=== PATIENT | female | born 1960 | race Caucasian/White ===

== ENCOUNTER 2017-11-06 00:37 | Observation (INO) | payer MEDICARE ==
[2017-11-06] VITALS (7 sets, daily range): BP systolic 91–111; BP diastolic 56–62; PULSE 60–88; RESP 16; TEMP 97.7–98.9; O2SAT 93–99
[~2017-11-06] VITALS: Ht 157.5 cm; Wt 70.0 kg
[2017-11-06] MEDS ORDERED: CHOL1CAP24 PO (01:33)
[2017-11-06] MEDS ORDERED: HYDR-3516 PO (01:33)
[2017-11-06] MEDS ORDERED: CREO3000 PO (01:33)
[2017-11-06] MEDS ORDERED: SYNT25TA PO (01:33)
[2017-11-06] MEDS ORDERED: SODIUM CHLORID 0.9% 500 ML INJ 500 ML IV ONE (02:00)
--- NOTE | 2017-11-06 02:08 | PD ---
HPI Chief Complaint: Fever Time Seen by Provider: 01:59 Travel History International Travel<30 days: No Contact w/Intl Traveler<30days: No Traveled to known affect area: No History of Present Illness HPI 57-year-old female presents to the emergency department for evaluation of fever. 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 Patient states he infusion or performed an [facility]. 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 Patient states last infusion was on Tuesday. Patient states that prior to her IVIG she had been having headaches and did not tell her managing provider about this. Patient has not had fever chills until today. Patient states today her temperature elevation increase to 103F. Patient following took Lortab and acetaminophen as well as ibuprofen for fever management. Patient states for transport to the hospital she called EMS to transport her. Patient also has history of pancreatitis and hypothyroidism. Patient also reports that earlier today she had severe chest pain which is atypical for her she's never had severe chest pain before without associated referred neck jaw back shoulder arm pain associated nausea vomiting shortness of breath or sweats. Patient denies any chest pain at this time. PFSH Past Medical History Narrative Medical Immune deficiency CHF hypothyroidism pancreatitis thyroidectomy tonsillectomy; no tobacco use; nursing notes reviewed Congestive Heart Failure: Yes Diminished Hearing: No Gastrointestinal Disorders: Yes (TORTUOUS ESOPHAGUS) Immune Disorder: Yes (IV/IG TRANSFUSIONS) Pancreatitis: Yes Tetanus Vaccination: Unknown Influenza Vaccination: No Past Surgical History Surgical History: No Previous Surgery Endocrine Surgery: Yes (THYROID/PARATHYORID REMOVED) Tonsillectomy: Yes Other Surgery: Yes (ESOPHAGUS/STOMACH STRETCHING) Social History Alcohol Use: No Tobacco Use: No Substance Use: No Allergies-Medications (Allergen,Severity, Reaction): Coded Allergies: No Known Allergies (Unverified , 11/06/17) Reported Meds & Prescriptions Reported Meds & Active Scripts Active Reported Hydrocodone-Acetaminophen 5-325 mg Tab 1 Tab PO Q6H PRN Vitamin D3 (Cholecalciferol) 10,000 Unit Cap 6,000 Units PO Q7D Synthroid (Levothyroxine Sodium) 25 Mcg Tab 25 Mcg PO DAILY Creon (Pancrelipase) 3,000-9,500-15,000 Units Cap 1 Cap PO TIDPC Review of Systems Except as stated in HPI: all other systems reviewed are Neg Physical Exam Narrative GENERAL: Well-developed well-nourished female in no acute distress no respiratory distress SKIN: Warm and dry. HEAD: Normocephalic. EYES: No scleral icterus. No injection or drainage. NECK: Supple, trachea midline. No JVD or lymphadenopathy. CARDIOVASCULAR: Regular rate and rhythm without murmurs, gallops, or rubs. RESPIRATORY: Breath sounds equal bilaterally. No accessory muscle use. GASTROINTESTINAL: Abdomen soft, non-tender, nondistended. MUSCULOSKELETAL: No cyanosis, or edema. BACK: Nontender without obvious deformity. No CVA tenderness. Data Data Last Documented VS Vital Signs Date Time Temp Pulse Resp B/P (MAP) Pulse Ox O2 Delivery O2 Flow Rate FiO2 11/06/17 02:23 96 Nasal Cannula 2.00 11/06/17 00:40 98.9 88 16 111/62 (78) Orders Orders Sepsis Workup Initiated (11/06/17 ) Electrocardiogram (11/06/17 01:59) Complete Blood Count With Diff (11/06/17 01:59) Comprehensive Metabolic Panel (11/06/17 01:59) Prothrombin Time / Inr (Pt) (11/06/17 01:59) Act Partial Throm Time (Ptt) (11/06/17 01:59) Lactic Acid Sepsis Protocol (11/06/17 01:59) Magnesium (Mg) (11/06/17 01:59) Lipase (11/06/17 01:59) Ckmb (Isoenzyme) Profile (11/06/17 01:59) Troponin I (11/06/17 01:59) Urinalysis - C+S If Indicated (11/06/17 01:59) Influenzae A/B Antigen (11/06/17 01:59) Blood Culture (11/06/17 01:59) Chest, Single Ap (11/06/17 01:59) Blood Glucose (11/06/17 01:59) Ecg Monitoring (11/06/17 01:59) Iv Access Insert/Monitor (11/06/17 01:59) Oximetry (11/06/17 01:59) Oxygen Administration (11/06/17 01:59) Ct Brain W/O Iv Contrast(Rout) (11/06/17 01:59) Sodium Chlorid 0.9% 500 Ml Inj (Ns 500 M (11/06/17 02:00) Drug Screen, Random Urine (11/06/17 01:59) CKMB (11/06/17 02:10) CKMB% (11/06/17 02:10) Aspirin Chew (Aspirin Chew) (11/06/17 04:00) Admit Order (Ed Use Only) (11/06/17 ) Construction Analyst / Telemetry [id number] (11/06/17 04:13) Diet Heart Healthy (11/06/17 Breakfast) Activity Oob With Assistance (11/06/17 04:13) Notify Dr: Other (11/06/17 04:13) Labs Laboratory Tests Test 11/06/17 02:10 White Blood Count 6.8 TH/MM3 Red Blood Count 4.63 MIL/MM3 Hemoglobin 13.2 GM/DL Hematocrit 39.2 % Mean Corpuscular Volume 84.8 FL Mean Corpuscular Hemoglobin 28.5 PG Mean Corpuscular Hemoglobin Concent 33.6 % Red Cell Distribution Width 14.4 % Platelet Count 194 TH/MM3 Mean Platelet Volume 7.9 FL Neutrophils (%) (Auto) 84.6 % Lymphocytes (%) (Auto) 8.3 % Monocytes (%) (Auto) 6.1 % Eosinophils (%) (Auto) 0.1 % Basophils (%) (Auto) 0.9 % Neutrophils # (Auto) 5.8 TH/MM3 Lymphocytes # (Auto) 0.6 TH/MM3 Monocytes # (Auto) 0.4 TH/MM3 Eosinophils # (Auto) 0.0 TH/MM3 Basophils # (Auto) 0.1 TH/MM3 CBC Comment DIFF FINAL Differential Comment Prothrombin Time 10.1 SEC Prothromb Time International Ratio 1.0 RATIO Activated Partial Thromboplast Time 27.7 SEC Urine Color YELLOW Urine Turbidity CLEAR Urine pH 6.5 Urine Specific [place] 1.013 Urine Protein TRACE mg/dL Urine Glucose (UA) NEG mg/dL Urine Ketones NEG mg/dL Urine Occult Blood MOD Urine Nitrite NEG Urine Bilirubin NEG Urine Urobilinogen 2.0 MG/DL Urine Leukocyte Esterase NEG Urine RBC 9 /hpf Urine WBC 2 /hpf Urine Squamous Epithelial Cells 1 /hpf Urine Mucus FEW /lpf Microscopic Urinalysis Comment CATH-CULT NOT IND Blood Urea Nitrogen 11 MG/DL Creatinine 0.82 MG/DL Random Glucose 89 MG/DL Total Protein 8.1 GM/DL Albumin 3.4 GM/DL Calcium Level 8.2 MG/DL Magnesium Level 2.3 MG/DL Alkaline Phosphatase 92 U/L Aspartate Amino Transf (AST/SGOT) 46 U/L Alanine Aminotransferase (ALT/SGPT) 29 U/L Total Bilirubin 0.6 MG/DL Sodium Level 136 MEQ/L Potassium Level 4.5 MEQ/L Chloride Level 100 MEQ/L Carbon Dioxide Level 30.1 MEQ/L Anion Gap 6 MEQ/L Estimat Glomerular Filtration Rate 72 ML/MIN Lactic Acid Level 1.3 mmol/L Total Creatine Kinase 152 U/L Creatine Kinase MB LESS THAN 0.5 NG/ML Troponin I 0.15 NG/ML Lipase 168 U/L Urine Opiates Screen POS Urine Barbiturates Screen NEG Urine Amphetamines Screen POS Urine Benzodiazepines Screen NEG Urine Cocaine Screen NEG Urine Cannabinoids Screen POS MDM Medical Decision Making Medical Screen Exam Complete: Yes Emergency Medical Condition: Yes Medical Record Reviewed: Yes Interpretation(s) EKG sinus rhythm rate 93 left atrial enlargement and incomplete right bundle branch block and left anterior fascicular block no ST elevation CBC & BMP Diagram 11/06/17 02:10 Total Protein 8.1, Albumin 3.4, Calcium Level 8.2 L, Magnesium Level 2.3, Alkaline Phosphatase 92, Aspartate Amino Transf (AST/SGOT) 46 H, Alanine Aminotransferase (ALT/SGPT) 29, Total Bilirubin 0.6 Vital Signs Date Time Temp Pulse Resp B/P (MAP) Pulse Ox O2 Delivery O2 Flow Rate FiO2 11/06/17 02:23 96 Nasal Cannula 2.00 11/06/17 00:40 98.9 88 16 111/62 (78) 99 Room Air Differential Diagnosis Chest pain fever adverse medication reaction Narrative Course IV access obtained specimens collected and sent for resulting EKG performed which reveals no acute injury pattern change in clinical neurological Vital signs are found to be in normal range CBC white count is normal although 84% neutrophil is by automated differential Metabolic panel grossly within normal limits Troponin I is elevated at 0.15 patient denies any chest pain at this time EKG shows no acute ST elevation patient administered aspirin 162 mg Plan will be to admit patient for ongoing cardiac evaluation in view of complaint of previous chest pain earlier today Physician Communication Physician Communication discussed with Dr Hurst for admission ---requests CIC Diagnosis Primary Impression: Chest pain Additional Impression: Substance abuse Admitting Information Admitting Physician Requests: Admit Lindsay Dempsey MD Nov 06, 2017 02:08
--- NOTE | 2017-11-06 02:20 | RADRPT ---
EXAM DATE/TIME: 11/06/2017 02:08 [facility] COMPARISON: No previous studies available for comparison. INDICATIONS : Fever MEDICAL HISTORY : Pancreatitis. SURGICAL HISTORY : None. ENCOUNTER: Initial ACUITY: 2 days PAIN SCORE: 6/10 LOCATION: Bilateral chest FINDINGS: A single view of the chest demonstrates the lungs to be symmetrically aerated without evidence of mas s, infiltrate or effusion. The cardiomediastinal contours are unremarkable. Osseous structures are intact. CONCLUSION: Normal examination for a patient of this age. Eric Sharp MD on November 06, 2017 at 2:17 Board Certified Radiologist. This report was verified electronically.
[2017-11-06 03:06] LABS: AUTOMATED NEUTROPHIL # 5.8 TH/MM3 (1.8-7.7); BASOPHIL # 0.1 TH/MM3 (0-0.2); BASOPHIL % 0.9 % (0.0-2.0); EOSINOPHIL % 0.1 % (0.0-4.0); HEMATOCRIT 39.2 % (35.0-46.0); HEMOGLOBIN 13.2 GM/DL (11.6-15.3); LYMPH % 8.3 % (9.0-44.0); LYMPHOCYTE # 0.6 TH/MM3 (1.0-4.8); MEAN CELL VOLUME 84.8 FL (80.0-100.0); MEAN CORPUSCULAR HEMOGLOBIN 28.5 PG (27.0-34.0); MEAN CORPUSCULAR HGB CONC 33.6 % (32.0-36.0); MEAN PLATELET VOLUME 7.9 FL (7.0-11.0); MONO % 6.1 % (0.0-8.0); MONOCYTE # 0.4 TH/MM3 (0-0.9); NEUT % 84.6 % (16.0-70.0); PLATELET COUNT 194 TH/MM3 (150-450); RED BLOOD COUNT 4.63 MIL/MM3 (4.00-5.30); RED CELL DISTRIBUTION WIDTH 14.4 % (11.6-17.2); WHITE BLOOD COUNT 6.8 TH/MM3 (4.0-11.0)
[2017-11-06 03:13] LABS: ALBUMIN 3.4 GM/DL (3.4-5.0); ALT (GPT) 29 U/L (10-53); AST (GOT) 46 U/L (15-37); BICARBONATE 30.1 MEQ/L (21.0-32.0); BLOOD UREA NITROGEN 11 MG/DL (7-18); CALCIUM 8.2 MG/DL (8.5-10.1); CHLORIDE 100 MEQ/L (98-107); CREATININE 0.82 MG/DL (0.50-1.00); GLOMERULAR FILTRATION RATE 72 ML/MIN (>89); GLUCOSE,RANDOM 89 MG/DL (74-106); LIPASE 168 U/L (73-393); MAGNESIUM 2.3 MG/DL (1.5-2.5); SODIUM (NA) 136 MEQ/L (136-145)
[2017-11-06 03:17] LABS: ALKALINE PHOSPHATASE 92 U/L (45-117); PROTHROMBIN TIME - PATIENT 10.1 SEC (9.8-11.6); TOTAL BILIRUBIN ADULT 0.6 MG/DL (0.2-1.0); TOTAL PROTEIN 8.1 GM/DL (6.4-8.2); TROPONIN I 0.15 NG/ML (0.02-0.05)
[2017-11-06 03:28] LABS: BILIRUBIN, URINE NEG (NEG); BLOOD, URINE MOD (NEG); GLUCOSE,URINE NEG (NEG); KETONE, URINE NEG (NEG); MUCUS URINE FEW /lpf (OCC); NITRITE,URINE NEG (NEG); PH, URINE 6.5 (5.0-8.5); SQUAMOUS EPITHELIAL CELL URINE 1 /hpf (0-5); URINE COLOR YELLOW (YELLW/STRAW); URINE LEUKOCYTE ESTERASE NEG (NEG)
--- NOTE | 2017-11-06 03:29 | RADRPT ---
EXAM DATE/TIME: 11/06/2017 03:05 [facility] COMPARISON: No previous studies available for comparison. INDICATIONS : Altered mental status and headaches. RADIATION DOSE: 34.46 CTDIvol (mGy) MEDICAL HISTORY : Cardiovascular disease. Pancreatitis. SURGICAL HISTORY : None. ENCOUNTER: Initial ACUITY: 4 - 6 days PAIN SCALE: 10/10 LOCATION: cranial TECHNIQUE: Multiple contiguous axial images were obtained of the head. Using automated exposure control and adj ustment of the mA and/or kV according to patient size, radiation dose was kept as low as reasonably a chievable to obtain optimal diagnostic quality images. DICOM format image data is available electro nically for review and comparison. FINDINGS: CEREBRUM: The ventricles are normal for age. No evidence of midline shift, mass lesion, hemorrhage or acute in farction. No extra-axial fluid collections are seen. POSTERIOR FOSSA: The cerebellum and brainstem are intact. The 4th ventricle is midline. The cerebellopontine angle i s unremarkable. EXTRACRANIAL: The visualized portion of the orbits is intact. SKULL: The calvaria is intact. No evidence of skull fracture. CONCLUSION: Normal examination for a patient of this age. Eric Sharp MD on November 06, 2017 at 3:26 Board Certified Radiologist. This report was verified electronically.
[2017-11-06] MEDS ORDERED: ASPIRIN 81 MG CHEW TAB CHEW ONE (04:00)
[2017-11-06] MEDS ORDERED: BISACODYL 10 MG SUPP RECTAL PRN (04:15)
[2017-11-06] MEDS ORDERED: SODIUM CHLORIDE 0.9% FLUSH 10 ML FLUSH IV FLUSH PRN (04:15)
[2017-11-06] MEDS ORDERED: ACETAMINOPHEN/HYDROcodone 325 MG/5 MG TAB PO PRN (04:15)
[2017-11-06] MEDS ORDERED: MAGNESIUM HYDROXIDE SUSP 30 ML CUP PO PRN (04:15)
[2017-11-06] MEDS ORDERED: LACTULOSE SYRUP 20 GM/30 ML CUP PO PRN (04:15)
[2017-11-06] MEDS ORDERED: ONDANSETRON HCL 4 MG/2 ML VIAL IVP PRN (04:15)
[2017-11-06] MEDS ORDERED: SENNOSIDES 8.6 MG TAB PO PRN (04:15)
[2017-11-06] MEDS ORDERED: ACETAMINOPHEN 325 MG TAB PO PRN (04:15)
[2017-11-06] MEDS ORDERED: MORPHINE SULFATE 2 MG/ML INJ IV PUSH PRN (04:15)
[2017-11-06] MEDS ORDERED: ONDANSETRON HCL 4 MG/2 ML VIAL IV PUSH ONE (04:45)
[2017-11-06] MEDS ORDERED: NITROGLYCERIN 2% OINT 1 GM PACKET TOPICAL PRN (05:00)
--- NOTE | 2017-11-06 05:03 | HHI.HP ---
[facility] Service [place] [facility] Primary Care Physician No Primary Care Physician Admission Diagnosis chest pain; substance use Diagnoses: (1) Chest pain Diagnosis: Principal (2) Elevated troponin Diagnosis: Principal (3) Substance abuse Diagnosis: Principal Travel History International Travel<30 Days: No Contact w/Intl Traveler <30 Da: No Traveled to Known Affected Are: No History of Present Illness [id number] female with a PMH of Immune Deficiency, Chronic Pancreatitis and Hypothyroidism who presented to the ER with complaints of chest pain. 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 Today reports having fever of 104.0 at home for which she took Lortab. Later w/ acute onset of chest pain, substernal, severe, 10/10, sharp, non-radiating. No h/o CAD. No cough or sick contacts. On arrival, BP 111/62, HR 88, O2 sat 99% on RA, Afebrile. CBC essentially unremarkable. Chemistry unremarkable. Troponin 0.15. INR 1.0. A negative. Urine Drug Screen positive for Opiates, Amphetamines and Marijuana. CXR with no acute findings. CT Head negative. S/p ASA in ER. Currently chest pain free. Review of Systems Except as stated in HPI: all other systems reviewed are Neg ROS: 14 point review of systems otherwise negative. Past Family Social History Past Medical History PMH: Immune Deficiency, Chronic Pancreatitis and Hypothyroidism Past Surgical History PAST SURGICAL HISTORY: Thyroidectomy, Tonsillectomy Allergies: Coded Allergies: No Known Allergies (Unverified , 11/06/17) Family History PAST FAMILY HISTORY: Reviewed. No h/o DM or CAD Social History PAST SOCIAL HISTORY: Negative for alcohol or tobacco. Denies substance abuse however UDS positive for Opiates, Amphetamines and Marijuana. Physical Exam Vital Signs Vital Signs Date Time Temp Pulse Resp B/P (MAP) Pulse Ox O2 Delivery O2 Flow Rate FiO2 11/06/17 02:23 96 Nasal Cannula 2.00 11/06/17 00:40 98.9 88 16 111/62 (78) 99 Room Air Physical Exam PE: GENERAL: Middle-aged white female in no acute distress, looks older than stated age. Appears intoxicated. Answers few questions, falls asleep HEENT: PERRLA, EOMI. No scleral icterus or conjunctival pallor. No lid lag or facial droop. CARDIOVASCULAR: Regular rate and rhythm. No obvious murmurs to auscultation. No chest tenderness to palpation. RESPIRATORY: No obvious rhonchi or wheezing. Clear to auscultation. Breath sounds equal bilaterally. GASTROINTESTINAL: Abdomen soft, non-tender, nondistended. BS normal. MUSCULOSKELETAL: Extremities without clubbing, cyanosis, or edema. No obvious deformities. NEUROLOGICAL: Awake, alert. No focal neurologic deficits. Moving both upper and lower extremities spontaneously. Laboratory Laboratory Tests Test 11/06/17 02:10 White Blood Count 6.8 Red Blood Count 4.63 Hemoglobin 13.2 Hematocrit 39.2 Mean Corpuscular Volume 84.8 Mean Corpuscular Hemoglobin 28.5 Mean Corpuscular Hemoglobin Concent 33.6 Red Cell Distribution Width 14.4 Platelet Count 194 Mean Platelet Volume 7.9 Neutrophils (%) (Auto) 84.6 Lymphocytes (%) (Auto) 8.3 Monocytes (%) (Auto) 6.1 Eosinophils (%) (Auto) 0.1 Basophils (%) (Auto) 0.9 Neutrophils # (Auto) 5.8 Lymphocytes # (Auto) 0.6 Monocytes # (Auto) 0.4 Eosinophils # (Auto) 0.0 Basophils # (Auto) 0.1 CBC Comment DIFF FINAL Differential Comment Prothrombin Time 10.1 Prothromb Time International Ratio 1.0 Activated Partial Thromboplast Time 27.7 Urine Color YELLOW Urine Turbidity CLEAR Urine pH 6.5 Urine Specific [place] 1.013 Urine Protein TRACE Urine Glucose (UA) NEG Urine Ketones NEG Urine Occult Blood MOD Urine Nitrite NEG Urine Bilirubin NEG Urine Urobilinogen 2.0 Urine Leukocyte Esterase NEG Urine RBC 9 Urine WBC 2 Urine Squamous Epithelial Cells 1 Urine Mucus FEW Microscopic Urinalysis Comment CATH-CULT NOT IND Blood Urea Nitrogen 11 Creatinine 0.82 Random Glucose 89 Total Protein 8.1 Albumin 3.4 Calcium Level 8.2 Magnesium Level 2.3 Alkaline Phosphatase 92 Aspartate Amino Transf (AST/SGOT) 46 Alanine Aminotransferase (ALT/SGPT) 29 Total Bilirubin 0.6 Sodium Level 136 Potassium Level 4.5 Chloride Level 100 Carbon Dioxide Level 30.1 Anion Gap 6 Estimat Glomerular Filtration Rate 72 Lactic Acid Level 1.3 Total Creatine Kinase 152 Creatine Kinase MB LESS THAN 0.5 Troponin I 0.15 Lipase 168 Urine Opiates Screen POS Urine Barbiturates Screen NEG Urine Amphetamines Screen POS Urine Benzodiazepines Screen NEG Urine Cocaine Screen NEG Urine Cannabinoids Screen POS Date/Time Source Procedure Growth Status 11/06/17 02:10 Blood Peripheral Aerobic Blood Culture Pending Received 11/06/17 02:10 Blood Peripheral Anaerobic Blood Culture Pending Received 11/06/17 02:10 Nasal Washing Influenza Types A,B Antigen (PAOLO) - Final NEGATIVE FOR FLU A AND B ANTIGEN.... Complete Result Diagram: 11/06/17 0210 11/06/17 0210 Caprini VTE Risk Assessment Caprini VTE Risk Assessment: No/Low Risk (score <= 1) Caprini Risk Assessment Model Point Value = 1 Point Value = 2 Point Value = 3 Point Value = 5 Age 41-60 Minor surgery BMI > 25 kg/m2 Swollen legs Varicose veins or History of unexplained or recurrent spontaneous Oral contraceptives or hormone replacement Sepsis (< 1 month) Serious lung disease, including pneumonia (< 1 month) Abnormal pulmonary function Acute myocardial infarction Congestive heart failure (< 1 month) History of inflammatory bowel disease Medical patient at bed rest Age 61-74 Arthroscopic surgery Major open surgery (> 45 min) Laparoscopic surgery (> 45 min) Malignancy Confined to bed (> 72 hours) Immobilizing plaster cast Central venous access Age >= 75 History of VTE Family history of VTE Factor V Leiden Prothrombin [id number] Lupus anticoagulant Anticardiolipin antibodies Elevated serum homocysteine Heparin-induced thrombocytopenia Other congenital or acquired thrombophilia Stroke (< 1 month) Elective arthroplasty Hip, pelvis, or leg fracture Acute spinal cord injury (< 1 month) Prophylaxis Regimen Total Risk Factor Score Risk Level Prophylaxis Regimen 0-1 Low Early ambulation 2 Moderate Order ONE of the following: *Sequential Compression Device (SCD) *Heparin 5000 units SQ BID 3-4 Higher Order ONE of the following medications: *Heparin 5000 units SQ TID *Enoxaparin/Lovenox 40 mg SQ daily (WT < 150 kg, CrCl > 30 mL/min) *Enoxaparin/Lovenox 30 mg SQ daily (WT < 150 kg, CrCl > 10-29 mL/min) *Enoxaparin/Lovenox 30 mg SQ BID (WT < 150 kg, CrCl > 30 mL/min) AND/OR *Sequential Compression Device (SCD) 5 or more Highest Order ONE of the following medications: *Heparin 5000 units SQ TID (Preferred with Epidurals) *Enoxaparin/Lovenox 40 mg SQ daily (WT < 150 kg, CrCl > 30 mL/min) *Enoxaparin/Lovenox 30 mg SQ daily (WT < 150 kg, CrCl > 10-29 mL/min) *Enoxaparin/Lovenox 30 mg SQ BID (WT < 150 kg, CrCl > 30 mL/min) AND *Sequential Compression Device (SCD) Assessment and Plan Problem List: (1) Chest pain ICD Code: R07.9 - Chest pain, unspecified Status: Acute (2) Elevated troponin ICD Code: R74.8 - Abnormal levels of other serum enzymes (3) Substance abuse ICD Code: F19.10 - Other psychoactive substance abuse, uncomplicated Status: Acute Assessment and Plan A/P: 1. Chest Pain: acute onset of substernal chest pain, initial Trop 0.15, EKG w / no acute findings. R/o ACS. Telemetry. Check serial cardiac enzymes to r/o ischemia. ASA, Statin, hold B-dawson in light of borderline BP. Consult cardiology for further recommendations. NTG/Morphine prn. 2. Elevated Trop: Trop 0.15, currently chest pain free, possibly drug-related , however r/o ACS. Plan as above. 3. Substance Abuse: UDS positive for Opiates, Amphetamines and Marijuana. Ativan prn if needed. 4. DVT Prophylaxis: SCD/Teds. 5. Social work for d/c planning as needed. 6. Case discussed w/ ER physician at length, labs/imaging/records reviewed Chyna Hurst MD Nov 06, 2017 05:02
[2017-11-06] MEDS: SODIUM CHLOR 0.9% 1000 ML INJ 1,000 ML IV SCH ×2 (05:05→14:12)
[2017-11-06] MEDS ORDERED: HEPARIN SODIUM - SQ 10,000 UNITS/ML VIAL SQ SCH (09:00)
[2017-11-06] MEDS ORDERED: DOCUSATE SODIUM 50 MG/SENNA 8.6 MG TAB PO SCH (09:00)
[2017-11-06] MEDS ORDERED: ASPIRIN EC 81 MG TABEC PO SCH (09:00)
[2017-11-06] MEDS ORDERED: PRAVASTATIN SOD 40 MG TAB PO SCH (09:00)
[2017-11-06] MEDS ORDERED: SODIUM CHLORIDE 0.9% FLUSH 10 ML FLUSH IV FLUSH SCH (09:00)
--- NOTE | 2017-11-06 12:56 | HHI.PR ---
Subjective Remarks Patient admitted today. This is a pleasant 57 y/o Female with Immune Deficiency, Chronic Pancreatitis and Hypothyroidism who came to ER with Chest pain, followed by weapons specialist at [facility] status post IVIG 10/31/17, reported fever 104F, atypical chest pain, No h/o CAD. Unremarkable CBC, Urine Drug Screen positive for Opiates, Amphetamines and Marijuana. CXR with no acute findings. CT Head negative. S/p ASA in ER. seen in her bedroom in the presence of Nurse awaiting for final recommendations by Cardiology Objective Vital Signs Date Time Temp Pulse Resp B/P (MAP) Pulse Ox O2 Delivery O2 Flow Rate FiO2 11/06/17 12:02 62 11/06/17 11:31 66 11/06/17 11:31 97.7 69 16 91/58 (69) 97 11/06/17 10:05 63 11/06/17 09:35 64 11/06/17 09:20 16 11/06/17 08:15 97.8 73 16 92/56 (68) 93 11/06/17 08:15 86 11/06/17 02:23 96 Nasal Cannula 2.00 11/06/17 00:40 98.9 88 16 111/62 (78) 99 Room Air I/O 11/05/17 11/05/17 11/05/17 11/06/17 11/06/17 11/06/17 07:00 15:00 23:00 07:00 15:00 23:00 # Bowel Movements 0 Result Diagram: 11/06/17 0210 11/06/17 021 Imaging Last Impressions Head CT 11/06/17158 Signed Impressions: Service Date/Time: Monday, November 06, 2017 03:05 - CONCLUSION: Normal examination for a patient of this age. Eric Sharp MD Chest X-Ray 11/06/17158 Signed Impressions: Service Date/Time: Monday, November 06, 2017 02:08 - CONCLUSION: Normal examination for a patient of this age. Eric Sharp MD Procedures None Other Results Laboratory Tests Test 11/06/17 02:10 11/06/17 10:07 White Blood Count 6.8 TH/MM3 Red Blood Count 4.63 MIL/MM3 Hemoglobin 13.2 GM/DL Hematocrit 39.2 % Mean Corpuscular Volume 84.8 FL Mean Corpuscular Hemoglobin 28.5 PG Mean Corpuscular Hemoglobin Concent 33.6 % Red Cell Distribution Width 14.4 % Platelet Count 194 TH/MM3 Mean Platelet Volume 7.9 FL Neutrophils (%) (Auto) 84.6 % Lymphocytes (%) (Auto) 8.3 % Monocytes (%) (Auto) 6.1 % Eosinophils (%) (Auto) 0.1 % Basophils (%) (Auto) 0.9 % Neutrophils # (Auto) 5.8 TH/MM3 Lymphocytes # (Auto) 0.6 TH/MM3 Monocytes # (Auto) 0.4 TH/MM3 Eosinophils # (Auto) 0.0 TH/MM3 Basophils # (Auto) 0.1 TH/MM3 CBC Comment DIFF FINAL Differential Comment Prothrombin Time 10.1 SEC Prothromb Time International Ratio 1.0 RATIO Activated Partial Thromboplast Time 27.7 SEC Urine Color YELLOW Urine Turbidity CLEAR Urine pH 6.5 Urine Specific [place] 1.013 Urine Protein TRACE mg/dL Urine Glucose (UA) NEG mg/dL Urine Ketones NEG mg/dL Urine Occult Blood MOD Urine Nitrite NEG Urine Bilirubin NEG Urine Urobilinogen 2.0 MG/DL Urine Leukocyte Esterase NEG Urine RBC 9 /hpf Urine WBC 2 /hpf Urine Squamous Epithelial Cells 1 /hpf Urine Mucus FEW /lpf Microscopic Urinalysis Comment CATH-CULT NOT IND Blood Urea Nitrogen 11 MG/DL Creatinine 0.82 MG/DL Random Glucose 89 MG/DL Total Protein 8.1 GM/DL Albumin 3.4 GM/DL Calcium Level 8.2 MG/DL Magnesium Level 2.3 MG/DL Alkaline Phosphatase 92 U/L Aspartate Amino Transf (AST/SGOT) 46 U/L Alanine Aminotransferase (ALT/SGPT) 29 U/L Total Bilirubin 0.6 MG/DL Sodium Level 136 MEQ/L Potassium Level 4.5 MEQ/L Chloride Level 100 MEQ/L Carbon Dioxide Level 30.1 MEQ/L Anion Gap 6 MEQ/L Estimat Glomerular Filtration Rate 72 ML/MIN Lactic Acid Level 1.3 mmol/L Total Creatine Kinase 152 U/L Creatine Kinase MB LESS THAN 0.5 NG/ML Lipase 168 U/L Urine Opiates Screen POS Urine Barbiturates Screen NEG Urine Amphetamines Screen POS Urine Benzodiazepines Screen NEG Urine Cocaine Screen NEG Urine Cannabinoids Screen POS Troponin I 0.06 NG/ML Objective Remarks GENERAL: No acute distress. HEENT: PERRLA, EOMI. CARDIOVASCULAR: Regular rate and rhythm. RESPIRATORY: No obvious rhonchi or wheezing. Clear to auscultation. GASTROINTESTINAL: Abdomen soft, non-tender. positive bowel sounds. MUSCULOSKELETAL: Extremities without clubbing, cyanosis, or edema. NEUROLOGICAL: Awake, alert. No focal neurologic deficits. Medications and IVs Current Medications Medications (Trade) Dose Ordered Sig/Deb Route Start Time Stop Time Status Last Admin (Ecotrin Ec) 81 mg DAILY PO 11/06/17 09:00 11/06/17 08:08 (Pravachol) 40 mg DAILY PO 11/06/17 09:00 11/06/17 08:08 Sodium Chloride 1,000 ml @ 100 mls/hr Q10H IV 11/06/17 04:12 11/06/17 05:05 (NS Flush) 2 ml UNSCH PRN IV FLUSH 11/06/17 04:15 (NS Flush) 2 ml BID IV FLUSH 11/06/17 09:00 (Zofran Inj) 4 mg Q6H PRN IVP 11/06/17 04:15 (Heparin Inj) 5,000 units Q12H SQ 11/06/17 09:00 11/06/17 08:08 (Tylenol) 650 mg Q6H PRN PO 11/06/17 04:15 ([place] 5-325 Mg) 1 tab Q4H PRN PO 11/06/17 04:15 11/06/17 08:09 (Morphine Inj) 2 mg Q3H PRN IV PUSH 11/06/17 04:15 ([place]-Colace) 1 tab BID PO 11/06/17 09:00 11/06/17 08:08 (Milk Of Magnesia Liq) 30 ml Q12H PRN PO 11/06/17 04:15 (Senokot) 17.2 mg Q12H PRN PO 11/06/17 04:15 (Dulcolax Supp) 10 mg DAILY PRN RECTAL 11/06/17 04:15 (Lactulose Liq) 30 ml DAILY PRN PO 11/06/17 04:15 (Nitroglycerin 2% Oint) 0.5 inch Q6HR PRN TOPICAL 11/06/17 05:00 A/P Assessment and Plan 1. Chest Pain: acute onset of substernal chest pain, initial Trop 0.15 trending down to 0.06, continue Cardiac Monitoring. continue Aspirin, Statin, on hold Beta dawson due to borderline blood pressure, senior publications specialist consulted. Nitroglycerine and Morphine as needed. 2. Substance Abuse: UDS positive for Opiates, Amphetamines and Marijuana. Ativan prn if needed. 3. Immunodeficiency on IVIG. DVT Prophylaxis: SCD/Teds. Discharge Planning Once cleared by senior publications specialist. Julio Traore MD Nov 06, 2017 12:56
--- NOTE | 2017-11-06 13:43 | MB ---
cc: DIVINA ROSAS M.D. DATE OF CONSULTATION: 11/06/2017. REASON FOR CONSULTATION: Evaluation of elevated troponin. 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 She started getting severe headaches. She had a severe episode of chest pain yesterday and afterwards was dizzy and fell asleep and then noticed a fever starting at 101 and climbing up to 104. She had some mental problems where she could not tell numbers on the phone easily. Her thoughts felt screwed up. She had pain in her neck and head and had been nauseated. She states she takes Adderall for chronic fatigue syndrome and attention deficit disorder by Dr. Alvarado. She says her veterinarian / oncologist is Dr. Loyola and that her primary care physician is Dr. Alton Sharif, but all these doctors are in [place]. She says she was born and raised in [place] and lives in [facility] in an apartment and sees them for care. She has never been diagnosed with heart disease in the past. She has never had chest pain before the episode yesterday. Her tox screen is positive for marijuana, amphetamines and opiates. She denies alcohol or tobacco. PAST MEDICAL HISTORY: Her past medical history includes: 1. Immune deficiency. 2. Chronic pancreatitis. 3. Hypothyroidism. PAST SURGICAL HISTORY: 1. Thyroidectomy. 2. Tonsillectomy. ALLERGIES: NONE KNOWN. FAMILY HISTORY: Family history is negative for heart disease. PHYSICAL EXAMINATION: GENERAL: The physical exam reveals a woman who appears older than her stated age. She has an unusual affect and somewhat unusual speech. VITAL SIGNS: Charted. She has been afebrile since admission. HEAD, EYES, EARS, NOSE, THROAT: Unremarkable. NECK: No jugular venous distention or bruits. CHEST: Clear to auscultation. CARDIAC: S1 and S2. Regular rate and rhythm. No murmurs or gallops. ABDOMEN: Abdomen soft and nontender. EXTREMITIES: No cyanosis, clubbing or edema. PULSES: Intact. EKGS: EKG shows normal sinus rhythm, left anterior fascicular block and incomplete right bundle-branch block. LABORATORY STUDIES: Troponin has gone from 0.15 down to 0.06. Creatinine is normal at 0.82. Hematocrit is 39.2. Blood cultures have been drawn and nothing back positive so far. RADIOLOGICAL STUDIES: Chest x-ray is negative. IMPRESSION: A 57-year-old female with a history of substance abuse who claims to be using Adderall who has now had an episode of severe chest pain that has resolved. Troponin is minimally elevated. Possible NSTEMI. RECOMMENDATIONS: I recommend a nuclear stress test. The patient does not provide consent for a stress test and said she would rather go to her doctors in [place]. Therefore, I would treat her medically with a low dose of diltiazem and aspirin. I have advised her to discontinue Adderall, she disagrees with my recommendation. I told her she risks a heart attack if she continues taking Adderall. The proper workup at this point would be to do a nuclear stress test but she refuses. I will be available for follow up on a PRN basis. Please call with any questions. MD ODALYS Orta/VIET /1:20 PM /1:26 PM
[2017-11-06 14:27] LABS: CHOLESTEROL/ HDL RATIO 2.37 RATIO; HDL CHOLESTEROL 68.2 MG/DL (40.0-60.0)
--- NOTE | 2017-11-06 14:35 | HHI.DS ---
Discharge Summary Admission Date Nov 06, 2017 at 04:15 Discharge Date: Nov 06, 2017 Admitting Diagnosis chest pain; substance use (1) Chest pain ICD Code: R07.9 - Chest pain, unspecified Diagnosis: Principal Status: Acute (2) Elevated troponin ICD Code: R74.8 - Abnormal levels of other serum enzymes Diagnosis: Principal (3) Substance abuse ICD Code: F19.10 - Other psychoactive substance abuse, uncomplicated Diagnosis: Principal Status: Acute Procedures None Brief History - From Admission [id number] female with a PMH of Immune Deficiency, Chronic Pancreatitis and Hypothyroidism who presented to the ER with complaints of chest pain. Per patient she follows with her Injection Molding Technician at [facility], s/p IVIG infusion approx 5 days ago. Today reports having fever of 104.0 at home for which she took Lortab. Later w/ acute onset of chest pain, substernal, severe, 10/10, sharp, non-radiating. No h/o CAD. No cough or sick contacts. On arrival, BP 111/62, HR 88, O2 sat 99% on RA, Afebrile. CBC essentially unremarkable. Chemistry unremarkable. Troponin 0.15. INR 1.0. A negative. Urine Drug Screen positive for Opiates, Amphetamines and Marijuana. CXR with no acute findings. CT Head negative. S/p ASA in ER. Currently chest pain free. CBC/BMP: 11/06/17 0210 11/06/17 0210 Significant Findings Laboratory Tests Test 11/06/17 02:10 11/06/17 10:07 Neutrophils (%) (Auto) 84.6 % (16.0-70.0) Lymphocytes (%) (Auto) 8.3 % (9.0-44.0) Lymphocytes # (Auto) 0.6 TH/MM3 (1.0-4.8) Urine Occult Blood MOD (NEG) Urine RBC 9 /hpf (0-3) Urine Mucus FEW /lpf (OCC) Calcium Level 8.2 MG/DL (8.5-10.1) Aspartate Amino Transf (AST/SGOT) 46 U/L (15-37) Estimat Glomerular Filtration Rate 72 ML/MIN (>89) Creatine Kinase MB LESS THAN 0.5 NG/ML Troponin I 0.15 NG/ML (0.02-0.05) 0.06 NG/ML (0.02-0.05) Urine Opiates Screen POS (NEG) Urine Amphetamines Screen POS (NEG) Urine Cannabinoids Screen POS (NEG) HDL Cholesterol 68.2 MG/DL (40.0-60.0) Imaging Last Impressions Head CT 11/06/17158 Signed Impressions: Service Date/Time: Monday, November 06, 2017 03:05 - CONCLUSION: Normal examination for a patient of this age. rEic Sharp MD Chest X-Ray 11/06/17158 Signed Impressions: Service Date/Time: Monday, November 06, 2017 02:08 - CONCLUSION: Normal examination for a patient of this age. Eric Sharp MD PE at Discharge GENERAL: No acute distress. HEENT: PERRLA, EOMI. CARDIOVASCULAR: Regular rate and rhythm. RESPIRATORY: No obvious rhonchi or wheezing. Clear to auscultation. GASTROINTESTINAL: Abdomen soft, non-tender. positive bowel sounds. MUSCULOSKELETAL: Extremities without clubbing, cyanosis, or edema. NEUROLOGICAL: Awake, alert. No focal neurologic deficits. Hospital Course Patient admitted today. This is a pleasant 57 y/o Female with Immune Deficiency, Chronic Pancreatitis and Hypothyroidism who came to ER with Chest pain, followed by sales and service specialist at [facility] status post IVIG 10/31/17, reported fever 104F, atypical chest pain, No h/o CAD. Unremarkable CBC, Urine Drug Screen positive for Opiates, Amphetamines and Marijuana. CXR with no acute findings. CT Head negative. S/p ASA in ER. seen in her bedroom in the presence of Nurse awaiting for final recommendations by Cardiology Assessment and Plan 1. Chest Pain: acute onset of substernal chest pain, initial Trop 0.15 trending down to 0.06, continue Cardiac Monitoring. continue Aspirin, Statin, on hold Beta dawson due to borderline blood pressure, strategic sourcing specialist consulted. Nitroglycerine and Morphine as needed. 2. Substance Abuse: UDS positive for Opiates, Amphetamines and Marijuana. Ativan prn if needed. 3. Immunodeficiency on IVIG. DVT Prophylaxis: SCD/Teds. Discharge Planning Once cleared by strategic sourcing specialist. The patient decided to sign AMA was advise about the risks of her decision she wants to go to another facility in [place]. Pt Condition on Discharge: Stable Discharge Disposition: Discharge Home Discharge Time: <= 30 minutes Discharge Instructions DIET: Follow Instructions for: Heart Healthy Diet Julio Traore MD Nov 06, 2017 14:35
--- NOTE | 2017-11-06 17:16 | EKG ---
Date Performed: 11/06/2017 Time Performed: 01:28:36 PTAGE: 57 years EKG: Sinus rhythm POSSIBLE LEFT ATRIAL ENLARGEMENT PATTERN CONSISTENT WITH PULMONARY DISEASE INCOMPLETE RIGHT BUNDLE B RANCH BLOCK LEFT ANTERIOR FASCICULAR BLOCK ABNORMAL ECG NO PREVIOUS TRACING DOCTOR: Danielito Rosenbaum Interpretating Date/Time 11/06/2017 17:14:46
[2017-11-06] MEDS ORDERED: DILTIAZEM HCL 30 MG TAB PO SCH (21:00)
== END 2017-11-06 14:40 | disposition left against medical advice (07) ==
LOC: NEPC 00:37 → INTOOBSV 04:15 → NEDA 04:15 → HCIS 06:40
PROVIDERS: ADMIT Internal Medicine; ATTEND Internal Medicine
DX: R07.9 Chest pain, unspecified (principal); R74.8 Abnormal levels of other serum enzymes; D84.9 Immunodeficiency, unspecified; F19.10 Other psychoactive substance abuse, uncomplicated; R53.82 Chronic fatigue, unspecified; R94.31 Abnormal electrocardiogram [ECG] [EKG]
CPT/HCPCS: 70450; 71045; 80053; 80061; 80307; 81001; 82550; 82552; 83605; 83690; 83735; 84484; 85025; 85610; 85730; 87040; 87804; 93005; 96360; 96361; 96372; 99285; G0378; J1644; J2405; J7030; J7040